=== PATIENT | female | born 1995 | race Caucasian/White ===

== ENCOUNTER 2022-08-22 11:36 | Emergency (ER) | payer MEDICAID, OTHER ==
[~2022-08-22] VITALS: Ht 165.1 cm; Wt 54.0 kg
[2022-08-22] MEDS ORDERED: LEVETIRACETAM 1,500 MG in SODIUM CHLORIDE 0.9% 100 ML IV STA (12:08)
[2022-08-22 12:37] LABS: BASOPHILS % 1.6 % (0.0-2.0); EOSINOPHILS % 2.9 % (0.0-5.0); HEMATOCRIT. 38.3 % (36.0-48.0); HEMOGLOBIN. 13.1 g/dL (12.0-16.0); MEAN CORPUSCULAR HEMOGLOBIN 33.2 pg (28.0-32.0); MEAN CORPUSCULAR VOLUME 97.5 fL (81.0-99.0); NEUTROPHILS % 47.5 % (40.0-76.0); PLATELET 208 x1000/uL (130-400); RED BLOOD CELL COUNT 3.93 mill/uL (4.2-5.4); RED CELL DISTRIBUTION WIDTH 12.6 % (11.6-14.6)
[2022-08-22 12:45] LABS: CHLORIDE 97 mEq/L (98-107)
[2022-08-22 12:47] LABS: PROTHROMBIN TIME 10.9 sec (9.6-11.0)
[2022-08-22 12:53] LABS: HCG SCREEN NEGATIVE
[2022-08-22 12:55] LABS: ETHANOL BLOOD 171 mg/dL
[2022-08-22] MEDS ORDERED: KEPP500 MT (18:16)
[2022-08-22] MEDS ORDERED: CHLO25CA10 PO (18:16)
[2022-08-22] MEDS ORDERED: THIA50TA12 MT (18:16)
[2022-08-22 18:32] VITALS: BP 126/66
[2022-08-22] MEDS ORDERED: CHLORDIAZEPOXIDE 25MG CAPSULE PO ONE (18:45)
== END 2022-08-22 19:05 | disposition home or self-care (01) ==
LOC: ER 11:36
DX: R56.9 Unspecified convulsions (principal); F10.239 Alcohol dependence with withdrawal, unspecified; Y90.6 Blood alcohol level of 120-199 mg/100 ml
CPT/HCPCS: 36415; 80053; 80320; 83690; 83735; 84703; 85025; 85610; 93005; 96365; 99284; J1953; J7050; G0480